=== PATIENT | female | born 1955 | race Caucasian/White ===

== ENCOUNTER 2016-05-25 13:00 | Emergency (ER) | payer BC ==
[2016-05-25 13:54] VITALS: BP 131/69
[2016-05-25 14:21] LABS: Hematocrit 26.6 % (37.0-47.0); Mean Cell Volume 79.9 fl (78-100); Mean Corpuscular Hemoglobin 23.1 pg (27-31); Mean Corpuscular Hgb Conc 28.9 g/dl (32-36); Mean Platelet Volume 9.2 fl (6.0-9.5); Neutrophil # 6.3 K/mm3 (1.3-6.0); Neutrophil % 79.8 % (42-75.0); Platelet Count 381 K/mm3 (150-450); Red Blood Count 3.33 M/mm3 (4.2-5.4); Red Cell Distribution Width 17.5 % (11.5-14.0); White Blood Count 7.9 K/mm3 (4.0-10.5)
[2016-05-25 14:23] LABS: Hemoglobin 7.7 gm/dL (12.5-16.0)
--- NOTE | 2016-07-01 00:11 | ERNOTE ---
Medical Problem HPI - Narrative Date of Service: 05/25/16 - General Chief Complaint: General Assessment Time Seen by Provider: 05/25/16 13:32 Source: patient - Immun/Allergies/Home Medications Immunizations: IMMUNIZATION HX Immunizations Up to Date Yes History of Influenza Vaccine Yes Hx Pneumococcal Vaccination No Allergies/Adverse Reactions: Allergies Penicillins Allergy (Mild, Verified 04/10/16 15:22) Itching, rash codeine Adverse Reaction (Mild, Verified 04/10/16 15:22) N/V doxycycline calcium [From Vibramycin] Adverse Reaction (Mild, Verified 04/10/16 15:22) N/V doxycycline hyclate [From Vibramycin] Adverse Reaction (Mild, Verified 04/10/16 15:22) N/V doxycycline monohydrate [From Vibramycin] Adverse Reaction (Mild, Verified 04/10 15:22) N/V Home Medications: HOME MEDICATIONS Atorvastatin Calcium [Lipitor] 20 mg PO DAILY 06/06/13 [Last Taken 03/11/15] Esomeprazole Magnesium [Nexium] 40 mg PO DAILY 06/06/13 [Last Taken 03/11/15] Lorazepam 0.5 mg PO TID 06/06/13 [Last Taken 03/11/15] Albuterol Sulfate [Proair Hfa] 2 puff IH QID PRN 07/26/15 [Last Taken Unknown] Aspirin [Aspirin Enteric Coated] 81 mg PO DAILY 07/26/15 [Last Taken Unknown] Blood Sugar Diagnostic, Drum [Accu-Chek Compact] 1 each MC BID 07/26/15 [Last Taken Unknown] Ferrous Sulfate [Iron] 325 mg PO DAILY 07/26/15 [Last Taken Unknown] Metoprolol Succinate [Toprol Xl] 25 mg PO DAILY 07/26/15 [Last Taken 08/04/15 05 :00] Sucralfate [Carafate] 1 gm PO QID 07/26/15 [Last Taken Unknown] Cyanocobalamin (Vitamin B-12) [Vitamin B-12] 2,500 mcg SL DAILY 04/10/16 [Last Taken Unknown] Nitroglycerin [Nitrostat] 0.4 mg SL Q5MIN PRN 04/10/16 [Last Taken Unknown] - History of Present History Narrative: pt feels dizzy and tired. She has had some dark stools. she has been feeling this way for a couple of days. She has had no hematemesis. denies nausea, vomiting at this time. Timing: constant Review of Systems - Review of Systems Constitutional: Present: See HPI EYE: Present: no symptoms reported ENT: Present: no symptoms reported Respiratory: Present: no symptoms reported Cardiology: Present: no symptoms reported Gastrointestinal/Abdominal: Present: See HPI Skin: Present: no symptoms reported Neurological: Present: no symptoms reported - Patient's Past Medical History Patient History - Medical: Anemia, Diabetes Type 2, GERD, Migraines, Other Patient History - Cardiac/Respiratory: Myocardial Infarction Patient History - Cancer: No Hx of Cancer Patient History - Surgical Procedures: Cholecystectomy, Cardiac stent, Hysterectomy, Other Patient History - Other: None LMP (females 10-50): Menopausal - Family History Mother Family History - Medical: Family History - Cardiac/Respiratory: CHF, Pneumonia Father Family History - Medical: - Social History Living Situations: home Abuse History: No History of abuse Psych History: Hx of Anxiety, Hx of Depression, Current tx/ever been on anti- depressants or anti-anxiety meds Smoking Status: Former smoker Alcohol Use: rarely Drug Use: none - Immunizations Immunizations Up to Date: Yes Hx Pneumococcal Vaccination: No History of Influenza Vaccine: Yes Physical Exam - Physical Exam General Appearance: Present: wd/wn, alert, other - appears pale Ears, Nose, Throat: Present: normal ENT inspection Neck: Present: normal inspection, nontender Respiratory: Present: no respiratory distress, normal breath sounds, no accessory muscle use Cardiovascular/Chest: Present: regular rate, rhythm, no murmur Gastrointestinal/Abdominal: Present: normal bowel sounds ED Progress - Results and Orders Patient's Lab Results:: I have reviewed the patient's lab results. - Vital Signs Patient's Vital Signs:: I have reviewed the patient's vital signs. - Progress/Reassessment Chief Complaint: General Assessment Plan - Plan Plan: Patient will be sent to outpatient for transfusion. Departure - Departure Clinical Impression: Anemia Qualifiers: Anemia type: other cause Other causes of anemia: other cause, not classified Qualified Code(s): D64.89 - Other specified anemias Disposition: Home self-care Condition: Good Instructions: Blood Transfusion Additional Instructions: Go to the [facility] now for transfusion Referrals: Melissa Mitchell MD [Primary Care Provider] -
== END 2016-05-25 15:05 | disposition home or self-care (01) ==
LOC: ER 13:00
DX: D64.89 Other specified anemias (principal); Z87.891 Personal history of nicotine dependence; Z95.5 Presence of coronary angioplasty implant and graft